=== PATIENT | male | born 1980 | race Caucasian/White ===

== ENCOUNTER 2016-10-14 20:30 | Emergency (ER) | payer MEDICAID ==
[2016-10-14] MEDS ORDERED: KETOROLAC TROMETHAMINE 60 MG/2 ML VIAL IM ONE ×2 (21:09→21:11)
[2016-10-14] MEDS ORDERED: PROMETHAZINE HCL 50 MG/ML AMPUL IM ONE ×2 (21:09→21:11)
--- NOTE | 2016-10-14 21:09 | ERNOTE ---
Headache ER HPI - General Presenting Symptoms: "migraine" Time Seen by Provider: 10/14/16 21:02 Source: patient Exam Limitations: no limitations - Immun/Allergies/Home Medications Immunizations: IMMUNIZATION HX Immunizations Up to Date Yes History of Influenza Vaccine More Information Required Hx Pneumococcal Vaccination More Information Required Allergies/Adverse Reactions: Allergies No Known Allergies Allergy (Verified 10/14/16 20:47) Home Medications: HOME MEDICATIONS HYDROcodone/ACETAMINOPHEN [[place] 5-325 Tablet] 1 - 2 tab PO Q6H PRN #40 tab 10/09 [Last Taken Unknown] Meclizine HCl [Antivert] 25 mg PO QID #100 tab 11/30/15 [Last Taken Unknown] Penicillin V Potassium [Pen-Vee K] 500 mg PO QID #56 tab 11/30/15 [Last Taken Unknown] Clindamycin HCl [Cleocin HCl] 300 mg PO TID #30 capsule 12/01/15 [Last Taken Unknown] - History of Present Illness Narrative: Patient has a history of migraines, usually has them about twice a year. This one started this afternoon, left sided, throbbing with associated vomiting Quality: Present: throbbing Severity-Currently: Present: severe Headache frequency: Present: similar to previous headache Modifying Factors - (Worsens): Reports: exposure to light Associated Symptoms: Reports: denies symptoms Exacerbated by:: Reports: light Prior Treament: Reports: similar symptoms before, currently on antibiotics. Denies: recently seen Review of Systems - Review of Systems Constitutional: Present: recent illness - MRSA infection. Absent: fever EYE: Absent: vision changes ENT: Absent: nose congestion, sore throat Respiratory: Absent: shortness of breath, cough Cardiology: Absent: chest pain Gastrointestinal/Abdominal: Present: nausea, vomiting. Absent: diarrhea, abdominal pain Genitourinary: Present: no symptoms reported Musculoskeletal: Absent: back pain, neck pain Neurological: Present: headache. Absent: weakness, numbness - Patient's Past Medical History Patient History - Medical: Migraines Patient History - Cardiac/Respiratory: Hypertension, Hyperlipidemia Patient History - Cancer: No Hx of Cancer Patient History - Surgical Procedures: No surgical history Patient History - Other: None - Social History Living Situations: home Patient requests Smoking Cessation Consult: No Initiate information on Smoking Cessation: No Alcohol Use: none Drug Use: none - Immunizations Immunizations Up to Date: Yes Hx Pneumococcal Vaccination: More Information Required to Determine History of Influenza Vaccine: More Information Required to Determine Physical Exam - Physical Exam General Appearance: Present: wd/wn, alert, mild distress Eye Exam: Normal inspection: bilateral, PERRL: bilateral Ears, Nose, Throat: Present: normal ENT inspection, normal pharynx Neck: Present: normal inspection, nontender, supple, full range of motion Respiratory: Present: no respiratory distress, normal breath sounds, no accessory muscle use, lungs clear Cardiovascular/Chest: Present: regular rate, rhythm, no murmur Neurological Exam: Present: alert, oriented, normal mood/affect, no motor/ sensory deficits Skin Exam: Present: normal color, warm/dry ED Progress - Vital Signs Patient's Vital Signs:: I have reviewed the patient's vital signs. Vital Signs: Vital Signs 10/14/16 20:42 Temperature 36.4 C L Pulse Rate 83 Respiratory 18 Rate Blood Pressure 107/41 O2 Sat by Pulse 100 Oximetry - Progress/Reassessment Chief Complaint: Headache Progress Note-Subjective: 10/14/16 22:11 pain better, ready to go home Departure Clinical Impression: Migraine headache Qualifiers: Migraine type: unspecified Status migrainosus presence: without status migrainosus Intractability: not intractable Qualified Code(s): G43.909 - Migraine, unspecified, not intractable, without status migrainosus - Departure Disposition: Home self-care Condition: Good Instructions: Recurrent Migraine Headache, [id number] Additional Instructions: follow up with your doctor as needed
[2016-10-14 22:00] VITALS: BP 114/67
== END 2016-10-14 22:14 | disposition home or self-care (01) ==
LOC: ER 20:30
DX: G43.909 Migraine, unspecified, not intractable, without status migrainosus (principal)

== ENCOUNTER 2017-02-01 19:48 | Emergency (ER) | payer MEDICAID ==
[2017-02-01 20:10] VITALS: BP 113/86
[2017-02-01] MEDS ORDERED: KETOROLAC TROMETHAMINE 60 MG/2 ML VIAL IM ONE ×2 (20:19→20:25)
--- NOTE | 2017-02-01 20:38 | ERNOTE ---
Medical Problem HPI - Narrative Date of Service: 02/01/17 - General Chief Complaint: Fever Time Seen by Provider: 02/01/17 20:12 Source: patient Exam Limitations: no limitations - Immun/Allergies/Home Medications Immunizations: IMMUNIZATION HX Immunizations Up to Date Yes History of Influenza Vaccine No Hx Pneumococcal Vaccination No Allergies/Adverse Reactions: Allergies No Known Allergies Allergy (Verified 10/14/16 20:47) Home Medications: HOME MEDICATIONS Loratadine [Claritin] 10 mg PO DAILY #30 tab 02/01/17 [Last Taken Unknown] Naproxen [Naprosyn] 500 mg PO BID PRN #60 tab 02/01/17 [Last Taken Unknown] Topiramate [Topamax] 25 mg PO BID 02/01/17 [Last Taken Unknown] - History of Present History Narrative: Pt. comes in with c/o body aches, malaise, fatigue, and fever, for 24 hours. Pt. also states that he has had recent MRSA infection which has resolved and he has had rhinorrhea and sinus congestion for two months. Pt. denies any cough, SOB, NVD, alleviating factor or aggravating factor. Review of Systems - Review of Systems Constitutional: Present: recent illness, fever, chills, weakness, fatigue, malaise EYE: Present: no symptoms reported ENT: Present: nose congestion, nasal drainage, sore throat. Absent: ear pain Respiratory: Present: no symptoms reported. Absent: shortness of breath, cough , wheezing Cardiology: Present: no symptoms reported. Absent: chest pain, palpitations, edema Gastrointestinal/Abdominal: Present: no symptoms reported. Absent: nausea, vomiting, diarrhea Genitourinary: Present: no symptoms reported Musculoskeletal: Present: no symptoms reported. Absent: back pain, joint pain Skin: Present: no symptoms reported Neurological: Present: headache. Absent: dizziness/light-headedness, numbness, tingling All Other Systems: All systems neg except as marked - Patient's Past Medical History Patient History - Medical: Depression, Migraines Patient History - Cardiac/Respiratory: Hypertension, Hyperlipidemia Patient History - Cancer: No Hx of Cancer Patient History - Surgical Procedures: No surgical history Patient History - Other: None - Social History Living Situations: spouse Abuse History: No History of abuse Psych History: Hx of Depression Smoking Status: Current every day smoker Have you smoked in the past 12 months: Yes Do you dip or chew tobacco: No Alcohol Use: sober Drug Use: none - Immunizations Immunizations Up to Date: Yes Hx Pneumococcal Vaccination: No History of Influenza Vaccine: No Physical Exam - Physical Exam General Appearance: Present: wd/wn, alert, no apparent distress Head Exam: Present: normal inspection, no evidence of injury Eye Exam: Normal inspection: bilateral, PERRL: bilateral, EOMI: bilateral Ears, Nose, Throat: Present: nasal congestion, sinus pain/drainage, pharyngeal erythema. Absent: pharyngeal swelling, tonsillar exudate, tonsillar swelling Neck: Present: normal inspection, nontender. Absent: lymphadenopathy (R), lymphadenopathy (L) Respiratory: Present: no respiratory distress, normal breath sounds, no accessory muscle use, chest nontender, lungs clear Cardiovascular/Chest: Present: regular rate, rhythm, no murmur, normal peripheral pulses Gastrointestinal/Abdominal: Present: normal bowel sounds, nontender, nondistended, soft, no organomegaly Back Exam: Present: normal inspection Extremity Exam: Present: normal inspection Neurological Exam: Present: alert, oriented, normal mood/affect, no motor/ sensory deficits Skin Exam: Present: normal color, warm/dry. Absent: pallor, skin rash ED Progress - Date and Time Seen: Date and Time: 02/01/17 21:13 Pt. improved greatly with Toradol feel that NSAIDS will help symptoms greatly but feel with this going on for such a long time that pt. needs further immunology work up and discussed this with pt. - Results and Orders Patient's Lab Results:: I have reviewed the patient's lab results. - Vital Signs Patient's Vital Signs:: I have reviewed the patient's vital signs. Vital Signs: Vital Signs 02/01/17 19:56 Temperature 38.8 C H Pulse Rate 112 H Respiratory 16 Rate Blood Pressure 113/86 O2 Sat by Pulse 98 Oximetry - Progress/Reassessment Chief Complaint: Fever Progress:: Pain free at discharge Departure Clinical Impression: Systemic viral illness - Departure Disposition: Home self-care Condition: Good Instructions: Viral Respiratory Infection, [id number] Additional Instructions: Please start taking claritin and naproxen daily and follow up with your primary provider to discuss further workup. Prescriptions: Loratadine [Claritin] 10 mg PO DAILY #30 tab Naproxen [Naprosyn] 500 mg PO BID PRN #60 tab PRN Reason: Pain
[2017-02-01 20:41] LABS: Hematocrit 45.2 % (42.0-52.0); Hemoglobin 15.5 gm/dL (13.5-18.0); Mean Cell Volume 84.2 fl (78-100); Mean Corpuscular Hemoglobin 28.9 pg (27-31); Mean Corpuscular Hgb Conc 34.3 g/dl (32-36); Mean Platelet Volume 10.6 fl (6.0-9.5); Platelet Count 204 K/mm3 (150-450); Red Blood Count 5.37 M/mm3 (4.7-6.0); Red Cell Distribution Width 12.7 % (11.5-14.0); White Blood Count 13.6 K/mm3 (4.0-10.5)
[2017-02-01 20:46] LABS: Total Cells Counted 100
[2017-02-01 20:54] LABS: Albumin * 4.3 gm/dl (3.4-5.0); Anion Gap 16.3 mmol/L (6.8-13.8); BUN/Creatinine Ratio 8.7 (9.0-21.6); Bilirubin, Total 0.6 mg/dL (0.0-1.1); Ca. Corrected For Albumin 8.7 mg/dL (8.4-10.2); Calcium * 9.3 mg/dL (7.9-10.9); Potassium 3.3 mmol/L (3.4-4.6); Total Protein 8.8 gm/dL (6.2-8.2)
[2017-02-01 21:47] LABS: Band 1 % (0-2.0); Lymphocyte 5 % (20-51); Monocyte 6 % (0-9); Neutrophil 88 % (42-75)
[2017-02-01 21:49] LABS: Dohle Bodies Trace; Platelet Estimate Normal (NORMAL); RBC Morphology Normal (NORMAL); Toxic Granulation Trace
[2017-02-03 16:09] LABS: 18KD (IGG) Band NON-REACTIVE; 23KD (IGG) Band NON-REACTIVE; 28KD (IgG) Band NON-REACTIVE; 30KD (IgG) Band NON-REACTIVE; 39KD (IgG) Band NON-REACTIVE; 39KD (IgM) Band NON-REACTIVE; 41KD (IgG) Band NON-REACTIVE; 45KD (IgG) Band NON-REACTIVE; 58KD (IgG) Band NON-REACTIVE; 66KD (IgG) Band NON-REACTIVE; 93KD (IgG) Band NON-REACTIVE; B burgdorferi IgM WB NEGATIVE (NEGATIVE); B.burgdorferi Ab (IgG) WB NEGATIVE (NEGATIVE)
[2017-02-03 19:19] LABS: 41KD (IgM) Band NON-REACTIVE
== END 2017-02-01 21:30 | disposition home or self-care (01) ==
LOC: ER 19:48
DX: B33.8 Other specified viral diseases (principal); I10 Essential (primary) hypertension; F17.200 Nicotine dependence, unspecified, uncomplicated